=== PATIENT | female | born 1990 | race Caucasian/White ===

== ENCOUNTER 2024-07-10 19:21 | Emergency (ER) | payer OTHER, SELFPAY ==
[2024-07-10 19:23] VITALS: BP 121/73
--- NOTE | 2024-07-10 21:03 | ED.GENMED ---
History of Present Illness
General
Chief Complaint: Skin Problem
Time Seen by Provider: 07/10/24 20:35
History of Present Illness
History of Present Illness:
Patient is a 33-year-old woman presenting to the emergency department with finger swelling. Patient states that 5 days ago she went to an urgent care when she noticed that the left finger was slightly swollen around her nail. They did not drain
anything and started her on Keflex. Patient did finish the Keflex and noticed persistent swelling and pain. No fevers or chills. No numbness tingling. 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 No recent trauma. No herpetic lesions
noted by patient.
Phy Exam
Physical Exam
Physical Exam:
GENERAL: in no acute distress
HEENT: normocephalic, extraocular movements intact
RESPIRATORY: no respiratory distress
CARDIOVASCULAR: regular rate and rhythm
EXTREMITIES: Left fingertip with swelling fluctuance and erythema around the fingernail, no herpetic lesions
NEUROLOGIC: awake and alert, moves all extremities
SKIN: warm
Course
Vital Signs
Initial and Last Documented VS:
Initial Vital Signs
Temp Pulse Resp BP Pulse Ox
97.9 F 68 18 121/73 99
07/10/24 19:23 07/10/24 19:23 07/10/24 19:23 07/10/24 19:23 07/10/24 19:23
Last Documented Vital Signs
Temp Pulse Resp BP Pulse Ox
97.9 F 68 18 121/73 99
07/10/24 19:23 07/10/24 19:23 07/10/24 19:23 07/10/24 19:23 07/10/24 19:23
Procedures
Incision/Drainage/Joint Aspiration
Left Finger:
Anethesia: 1% Lidocaine
Preparation: cleaned with alcohol wipe
Type of procedure: incise and drain
Nature of site: abscess
Description of abscess: less than 3cm
Loculations broken up: Yes
How much fluid was obtained?: scant amount
Fluid description: purulent
Treatment: left open for drainage
MDM/Problems Addressed
Differential Diagnosis Includes:
Patient is a 33-year-old woman presenting to the emergency department with left fingertip infection. On exam the area is consistent with paronychia. Bedside I&D completed with small amount of purulent fluid. There was immediate relief especially
with the swelling. I did start patient on Augmentin. Will give first dose here. Patient provided with strict return precautions. Educated patient on warm water soaks.
*Critical Care Note
Total Time (30-74mins, 75-104mins- exclusive of procedures): Not Applicable
ED Attending Note
-
Portions of this chart may have been created with voice recognition software.� Occasional wrong word or��sound alike� substitutions may have occurred due to the inherent limitations of voice recognition software.
Discharge Plan
Departure
Patient Disposition: Home (Routine Discharge)
Date of Disposition: 07/10/24
Time of Disposition: 21:00
Patient with high blood pressure during this ER visit?: No
Discharge Problem:
Paronychia
Instructions: Paronychia ED
Prescriptions:
New
ibuprofen 600 mg tablet
600 mg PO QID PRN (Reason: Pain) Qty: 30 0RF
amoxicillin-pot clavulanate 875-125 mg tablet
1 tab PO Q12H 7 Days Qty: 14 0RF
Activity Restrictions/Additional Instructions:
You were seen in the Emergency Department today for An infection of your fingertip. Please take the antibiotics as prescribed. Please do the warm soaks as discussed. If you notice worsening numbness tingling or worsening pain please loosen up
the dressing and then proceed to the emergency department if symptoms persist.
We would like for you to follow up with your primary care physician for further evaluation. If you experience fever, worsening of your symptoms, or develop any other new or concerning symptoms, please return to the Emergency Department immediately.
Please see the attached sheet for additional information.
Interventions
Interventions:
*Risk Screen - Suicide Last Done: 07/10/24 19:28
*General Assessment Last Done: 07/10/24 19:28
*Neglect/Abuse Screening Last Done: 07/10/24 19:28
*ED COVID-19 Vaccine History Last Done: 07/10/24 19:28
ED-Skin Assessment Last Done: 07/10/24 20:59
Discharge Date and Time
Print Language: WOLOF
[2024-07-10] MEDS: MOTRIN 800 MG PO (21:11)
[2024-07-10] MEDS: AUGMENTIN 875 MG/125 MG 1 TABLET PO (21:11)
== END 2024-07-10 21:15 | disposition home or self-care (01) ==
LOC: EMR 19:21
PROVIDERS: EMERGENCY PHYSICIAN Student in an Organized Health Care Education/Training Program
DX: L02.512 Cutaneous abscess of left hand (principal); L03.012 Cellulitis of left finger
CPT/HCPCS: 99283; 10060

== ENCOUNTER 2024-09-07 14:06 | Emergency (ER) | payer OTHER, SELFPAY ==
--- NOTE | 2024-09-07 14:10 | ED.GENMED ---
ED Provider Triage
<MINNA James - Last Filed: 09/07/24 14:16>
-
Patient seen by provider in Triage?: Seen in Triage
Attestation: A medical screening examination has been initiated by a qualified medical provider. Based on the assessment performed at this time, it has been determined that an emergent medical condition may exist and the patient has been informed
that further medical evaluation and possible additional diagnostic testing may be needed.
HPI: 33-year-old female presents to the ER for evaluation of right flank radiating to right abdomen/right groin. Denies any frequency urgency or dysuria. Patient is nauseous but not vomited.
GENERAL: Alert , in no apparent distress
EYE: No visual abnormalities.
NECK: Trachea midline
ENT: No visible abnormalities.
LUNGS: No acute respiratory distress
NEUROLOGICAL: Alert and oriented
SKIN: Skin intact. No visible changes.
MUSCULOSKELETAL: Moving extremities normally
PSYCH: Normal and appropriate interaction.
This is a medical evaluation conducted in person to initiate diagnostic evaluation and provide initial therapeutics. Please see further documentation by the treating clinician.
History of Present Illness
<MINNA James - Last Filed: 09/07/24 14:16>
General
Chief Complaint: Flank Pain
Time Seen by Provider: 09/07/24 14:52
<Ger Jeter Jr., PA-C - Last Filed: 09/07/24 20:03>
General
Source: patient
Exam Limitations: none
Nursing documentation reviewed up to this point in time: agreed with
History of Present Illness
History of Present Illness:
33-year-old female presenting to the emergency department today with concerns of right-sided flank discomfort starting this morning described as intermittent sharp discomfort some mild urinary symptoms no vaginal symptoms no chest pain or shortness
of breath does have some nausea intermittent vomiting. No diarrhea.
Review of Systems
<Ger Jeter Jr., PA-C - Last Filed: 09/07/24 20:03>
Review of Systems
Allergies reviewed?: Yes
All Other Systems: ROS reviewed and negative except as documented in HPI and ROS
Phy Exam
<Ger Jeter Jr., PA-C - Last Filed: 09/07/24 20:03>
Physical Exam
Physical Exam:
GENERAL: Alert , in no apparent distress
EYE: pupils equal and reactive
NECK: Supple, no significant adenopathy.
ENT: o/p clr, mmm.
CARDIAC: Regular rate and rhythm .
LUNGS: Clear breath sounds bilaterally, no acute respiratory distress, no wheezes/rales/rhonchi
ABDOMEN: Soft, without focal tenderness, no r/g, no cvat
NEUROLOGICAL: Alert and oriented, no focal neuro deficits
SKIN: Warm and dry, skin intact.
MUSCULOSKELETAL: No edema, well perfused.
PSYCH: Normal and appropriate interaction.
Course
<MINNA James - Last Filed: 09/07/24 14:16>
Orders/Labs/Results
Orders:
Orders
09/07/24 14:12
Test Result ONCE
09/07/24 14:14
Ketorolac [Toradol] 30 mg IM NOW STA
Ondansetron Orally Disint [Zofran Odt (Orally Disintegrating)] 4 mg PO NOW STA
09/07/24 14:16
CT Abd/pel Without Iv Or Oral Urgent
Comment:
Reason For Exam: right flank pain
Ketorolac [Toradol] 60 mg .ROUTE .STK-MED ONE
Ondansetron Orally Disint [Zofran Odt (Orally Disintegrating)] 4 mg .ROUTE .STK-MED ONE
09/07/24 14:20
Ketorolac [Toradol] 30 mg IM NOW STA
09/07/24 14:33
Complete Blood Count/With Diff Urgent
Comprehensive Metabolic Panel Urgent
HCG, Serum Qualitative Screen Urgent
Lipase Urgent
09/07/24 14:40
Urinalysis Reflex To Culture Urgent
Date Specimen was Collected: 09/07/24
Time Specimen was Collected: 14:36
Urine Microscopic Reflex Cult Urgent
Urine Culture Urgent
EMMA Source: U
Specimen Description:
Date Specimen was Collected: 09/07/24
Time Specimen was Collected: 14:36
09/07/24 15:19
Morphine Sulfate 4 mg IV NOW STA
09/07/24 18:10
HYDROmorphone [Dilaudid] 0.5 mg IV NOW STA
09/07/24 18:19
Tamsulosin [Flomax] 0.4 mg PO NOW STA
Abnormal Lab Results
09/07/24 09/07/24
14:33 14:40
MPV 12.0 H fL
(7.4-10.4)
BUN 19 H mg/dl
(7-17)
Glucose 103 H mg/dl
(70-99)
Ur Occult Blood Reflex 4+ A
(Negative)
Urine RBC 80-90 A /HPF
(0-2)
Urine Bacteria (Reflex) Moderate A
(Negative)
Urine Albumin (Reflex) 1+ A
(Neg - Trace)
09/07/24 14:33
09/07/24 14:33
Vital Signs
Initial and Last Documented VS:
Initial Vital Signs
Temp Pulse Resp BP Pulse Ox
98.5 F 65 18 146/88 100
09/07/24 14:11 09/07/24 14:11 09/07/24 14:11 09/07/24 14:11 09/07/24 14:11
Last Documented Vital Signs
Temp Pulse Resp BP Pulse Ox
98.5 F 78 20 117/69 99
09/07/24 14:11 09/07/24 18:14 09/07/24 18:14 09/07/24 18:14 09/07/24 18:14
<Ger Jeter Jr., DESI-Annie - Last Filed: 09/07/24 20:03>
Orders/Labs/Results
Orders:
Orders
09/07/24 14:12
Test Result ONCE
09/07/24 14:14
Ketorolac [Toradol] 30 mg IM NOW STA
Ondansetron Orally Disint [Zofran Odt (Orally Disintegrating)] 4 mg PO NOW STA
09/07/24 14:16
CT Abd/pel Without Iv Or Oral Urgent
Comment:
Reason For Exam: right flank pain
Ketorolac [Toradol] 60 mg .ROUTE .STK-MED ONE
Ondansetron Orally Disint [Zofran Odt (Orally Disintegrating)] 4 mg .ROUTE .STK-MED ONE
09/07/24 14:20
Ketorolac [Toradol] 30 mg IM NOW STA
09/07/24 14:33
Complete Blood Count/With Diff Urgent
Comprehensive Metabolic Panel Urgent
HCG, Serum Qualitative Screen Urgent
Lipase Urgent
09/07/24 14:40
Urinalysis Reflex To Culture Urgent
Date Specimen was Collected: 09/07/24
Time Specimen was Collected: 14:36
Urine Microscopic Reflex Cult Urgent
Urine Culture Urgent
EMMA Source: U
Specimen Description:
Date Specimen was Collected: 09/07/24
Time Specimen was Collected: 14:36
09/07/24 15:19
Morphine Sulfate 4 mg IV NOW STA
09/07/24 18:10
HYDROmorphone [Dilaudid] 0.5 mg IV NOW STA
09/07/24 18:19
Tamsulosin [Flomax] 0.4 mg PO NOW STA
Abnormal Lab Results
09/07/24 09/07/24
14:33 14:40
MPV 12.0 H fL
(7.4-10.4)
BUN 19 H mg/dl
(7-17)
Glucose 103 H mg/dl
(70-99)
Ur Occult Blood Reflex 4+ A
(Negative)
Urine RBC 80-90 A /HPF
(0-2)
Urine Bacteria (Reflex) Moderate A
(Negative)
Urine Albumin (Reflex) 1+ A
(Neg - Trace)
09/07/24 14:33
09/07/24 14:33
Vital Signs
Initial and Last Documented VS:
Initial Vital Signs
Temp Pulse Resp BP Pulse Ox
98.5 F 65 18 146/88 100
09/07/24 14:11 09/07/24 14:11 09/07/24 14:11 09/07/24 14:11 09/07/24 14:11
Last Documented Vital Signs
Temp Pulse Resp BP Pulse Ox
98.5 F 78 20 117/69 99
09/07/24 14:11 09/07/24 18:14 09/07/24 18:14 09/07/24 18:14 09/07/24 18:14
<Ger Jeter Jr., PA-C - Last Filed: 09/07/24 20:03>
MDM/Problems Addressed
MDM/Problems Addressed:
33-year-old female presenting to the emergency department today with concerns of right-sided flank pain. Patient with intermittent sharp pain sounds consistent with potential kidney stone labs unremarkable vital signs normal afebrile urinalysis
without signs of infection. CT scan confirms 6.5 mm distal stone. Symptoms well-controlled here can follow-up with urology trial of passage recommended return precautions given.
<Ger Jeter Jr., PA-C - Last Filed: 09/07/24 20:03>
*Critical Care Note
Total Time (30-74mins, 75-104mins- exclusive of procedures): Not Applicable
ED Attending Note
<MINNA James - Last Filed: 09/07/24 14:16>
-
Portions of this chart may have been created with voice recognition software.� Occasional wrong word or��sound alike� substitutions may have occurred due to the inherent limitations of voice recognition software.
Discharge Plan
Departure
Patient Disposition: Home (Routine Discharge)
Date of Disposition: 09/07/24
Time of Disposition: 19:51
Patient with high blood pressure during this ER visit?: No
Condition: Good
Covid-19: Not Applicable
Discharge Problem:
Calculus, ureteral
Instructions: Kidney Stones (DC), How to Strain Your Urine
Prescriptions:
New
tamsulosin [Flomax] 0.4 mg capsule
0.4 mg PO HS Qty: 7 0RF
oxycodone-acetaminophen [Percocet] 5-325 mg tablet
1 tab PO Q6H PRN (Reason: Pain) Qty: 7 0RF
ondansetron 4 mg tablet,disintegrating
4 mg PO Q6H PRN (Reason: nausea and vomiting) Qty: 7 0RF
No Action
ibuprofen 600 mg tablet
600 mg PO QID PRN (Reason: Pain) Qty: 30 0RF
amoxicillin-pot clavulanate 875-125 mg tablet
1 tab PO Q12H 7 Days Qty: 14 0RF
Referrals:
Alexander Lopez MD [Active] - Follow up in 5-7 days
UNKNOWN - PT DOES,NOT KNOW [Family Provider] -
Activity Restrictions/Additional Instructions:
You came to the emergency department today with concerns of a stone. Please take prescribed medication help with symptoms and otherwise follow-up closely with urology if symptoms are ongoing. Return for any worsening, new or concerning symptoms.
Interventions
Interventions:
*Risk Screen - Suicide Last Done: 09/07/24 14:11
*General Assessment Last Done: 09/07/24 14:11
*Neglect/Abuse Screening Last Done: 09/07/24 14:11
*ED COVID-19 Vaccine History Last Done: 09/07/24 14:11
KJ-Bqnttu-Kyuqbmwzay Assessment Last Done: 09/07/24 15:35
ED-Female Genitourinary Assessment Last Done: 09/07/24 15:35
Discharge Date and Time
Print Language: [place]
[2024-09-07 14:11] VITALS: BP 146/88
[2024-09-07] MEDS: ZOFRAN ODT (ORALLY DISINTEGRATING) 4 MG PO (14:20)
[2024-09-07] MEDS: TORADOL 30 MG IM (14:21)
[2024-09-07 15:20] LABS: % Basophils 0.8 % (0-2); % Eosinophils 0.9 % (0-6); % Immature Granulocytes 0.4 % (0-0.5); % Lymphocytes 21.4 % (20.5-51.1); % Monocytes 8.5 % (1.7-9.3); Absolute Basophils 0.1 10^3/uL (0-0.2); Absolute Eosinophils 0.1 10^3/uL (0-0.7); Absolute Lymphocytes 1.6 10^3/uL (1.2-3.4); Absolute Monocytes 0.6 10^3/uL (0.1-0.6); Absolute Neutrophils 5.1 10^3/uL (1.4-6.5); Hemoglobin 13.3 g/dL (12.0-16.0); Mean Corp Hgb Conc. 33.3 g/dL (33.0-37.0); Mean Corpuscular Hgb 30.2 pg (27.0-31.0); Mean Corpuscular Volume 90.7 fL (81.0-99.0); Nucleated Red Blood Cells % 0 %; Platelet Count 209 10^3/uL (130-400); Red Blood Cell Count 4.41 10^6/uL (4.20-5.40); Red Cell Dist. Width 11.9 % (11.5-14.5); White Blood Cell Count 7.5 10^3/uL (4.8-10.8)
[2024-09-07 15:24] VITALS: BMI 32.6
[2024-09-07] MEDS: MORPHINE SULFATE 4 MG IV (15:31)
[2024-09-07 15:34] LABS: HCG, Serum Qualitative Screen Negative
[2024-09-07 15:36] LABS: Urine Albumin 1+ (Neg - Trace); Urine Bilirubin Negative (Negative); Urine Character Clear (Clear); Urine Color Yellow; Urine Glucose Negative (Negative); Urine Ketone Negative (Negative); Urine Leukocyte Negative (Negative); Urine Nitrite Negative (Negative); Urine Occult Blood 4+ (Negative); Urine Specific Gravity 1.025 (<1.030); Urine Urobilinogen Negative (Neg - 1+)
[2024-09-07 15:39] LABS: ALT (SGPT) 18 U/L (0-35); AST (SGOT) 25 U/L (14-36); Albumin 4.7 g/dl (3.5-5.0); Alkaline Phosphatase 90 U/L (38-126); Blood Urea Nitrogen 19 mg/dl (7-17); Calcium 9.4 mg/dl (8.4-10.2); Carbon Dioxide 25 mmol/L (22-30); Chloride 101 mmol/L (98-107); Estimated Creatinine Clearance 88 ml/min; Glucose 103 mg/dl (70-99); Potassium 4.2 mmol/L (3.5-5.1); Sodium 136 mmol/L (135-145); Total Bilirubin 1.2 mg/dl (0.2-1.3); Total Protein 7.4 g/dl (6.3-8.2); eGFR > 60.00
[2024-09-07 15:41] VITALS: BP 119/64
[2024-09-07 15:49] LABS: Urine Mucus Many; Urine Squamous Cell >30 /LPF (Few)
[2024-09-07 15:50] LABS: Urine Bacteria Moderate (Negative); Urine Calcium Oxalate Crystals Present; Urine Red Blood Cell 80-90 /HPF (0-2); Urine White Cell 0-2 /HPF (0-5)
[2024-09-07 16:04] LABS: Lipase 162 U/L (23-300)
[2024-09-07 18:14] VITALS: BP 117/69
[2024-09-07] MEDS: DILAUDID 0.5 MG IV (18:16)
[2024-09-07] MEDS: FLOMAX 0.4 MG PO (18:32)
[2024-09-07 19:54] VITALS: BP 118/75
== END 2024-09-07 20:06 | disposition home or self-care (01) ==
LOC: EMR 14:06
PROVIDERS: Nurse Practitioner; EMERGENCY PHYSICIAN Emergency Medicine
DX: N13.2 Hydronephrosis with renal and ureteral calculous obstruction (principal)
CPT/HCPCS: 96374; 96375; 96372; 99284; 74176; 80053; 81003; 81015; 83690; 84703; 85025; 87086

== ENCOUNTER 2024-09-11 23:58 | Inpatient (IN) | payer OTHER, SELFPAY ==
[2024-09-11 18:58] LABS: Urine Albumin Trace (Neg - Trace); Urine Bilirubin Negative (Negative); Urine Character Clear (Clear); Urine Color Yellow; Urine Glucose Negative (Negative); Urine Ketone Negative (Negative); Urine Leukocyte Negative (Negative); Urine Nitrite Negative (Negative); Urine Occult Blood 4+ (Negative); Urine Specific Gravity 1.015 (<1.030); Urine Urobilinogen Negative (Neg - 1+)
[2024-09-11 19:00] LABS: % Basophils 0.9 % (0-2); % Immature Granulocytes 0.4 % (0-0.5); % Lymphocytes 23.9 % (20.5-51.1); % Monocytes 8.1 % (1.7-9.3); % Neutrophils 65.7 % (42.2-75.2); Absolute Basophils 0.1 10^3/uL (0-0.2); Absolute Eosinophils 0.1 10^3/uL (0-0.7); Absolute Lymphocytes 2.2 10^3/uL (1.2-3.4); Absolute Monocytes 0.8 10^3/uL (0.1-0.6); Absolute Neutrophils 6.1 10^3/uL (1.4-6.5); Hematocrit 35.5 % (37.0-47.0); Hemoglobin 12.1 g/dL (12.0-16.0); Mean Corp Hgb Conc. 34.1 g/dL (33.0-37.0); Mean Corpuscular Hgb 30.6 pg (27.0-31.0); Mean Corpuscular Volume 89.6 fL (81.0-99.0); Mean Platelet Volume 11.3 fL (7.4-10.4); Nucleated Red Blood Cells % 0 %; Platelet Count 178 10^3/uL (130-400); Red Blood Cell Count 3.96 10^6/uL (4.20-5.40); Red Cell Dist. Width 11.8 % (11.5-14.5); White Blood Cell Count 9.3 10^3/uL (4.8-10.8)
[2024-09-11 19:06] LABS: Urine Calcium Oxalate Crystals Present; Urine Squamous Cell 16-20 /LPF (Few)
[2024-09-11 19:07] LABS: Urine Red Blood Cell 26-30 /HPF (0-2)
[2024-09-11 19:08] LABS: Urine Bacteria Moderate (Negative)
[2024-09-11 19:18] LABS: ALT (SGPT) 14 U/L (0-35); AST (SGOT) 20 U/L (14-36); Albumin 4.2 g/dl (3.5-5.0); Alkaline Phosphatase 84 U/L (38-126); Blood Urea Nitrogen 11 mg/dl (7-17); Calcium 9.1 mg/dl (8.4-10.2); Carbon Dioxide 27 mmol/L (22-30); Chloride 101 mmol/L (98-107); Glucose 86 mg/dl (70-99); Potassium 3.5 mmol/L (3.5-5.1); Sodium 137 mmol/L (135-145); Total Protein 6.5 g/dl (6.3-8.2); eGFR > 60.00
--- NOTE | 2024-09-11 21:15 | ED.GENMED ---
History of Present Illness
General
Chief Complaint: Urinary Symptoms
Time Seen by Provider: 09/11/24 21:07
History of Present Illness
History of Present Illness:
Patient is a 33-year-old woman who was recently here 4 days ago and diagnosed with a 6.5 mm kidney stone with moderate hydronephrosis ultimately discharged with Percocet and Flomax presenting to the emergency department for worsening pain. She
states that yesterday the pain worsened. It is in her right flank that radiates to her right groin. She been having dysuria and also noticed pink-tinged in her urine. No fevers or chills. No nausea or vomiting. She called her primary care
doctor who told her to come to the emergency department for further evaluation.
Phy Exam
Physical Exam
Physical Exam:
GENERAL: Appears uncomfortable
HEENT: normocephalic, extraocular movements intact, moist oral mucosa
NECK: normal inspection
RESPIRATORY: no respiratory distress, clear to auscultation bilaterally
CARDIOVASCULAR: regular rate and rhythm
ABDOMEN/: soft, non-distended, non-tender to palpation, no rebound or guarding
EXTREMITIES: non-tender, no edema/swelling
NEUROLOGIC: awake and alert, moves all extremities
SKIN: warm
Course
Orders/Labs/Results
Orders:
Orders
09/11/24 18:52
Complete Blood Count/With Diff Urgent
Comprehensive Metabolic Panel Urgent
HCG, Serum Qualitative Screen Urgent
Comment: ADDON
Urinalysis Reflex To Culture Urgent
Date Specimen was Collected: 09/11/24
Time Specimen was Collected: 18:45
Urine Microscopic Reflex Cult Urgent
Urine Culture Urgent
EMMA Source: U
Specimen Description:
Date Specimen was Collected: 09/11/24
Time Specimen was Collected: 18:45
09/11/24 21:08
CT Abd/pel Without Iv Or Oral Urgent
Comment:
Reason For Exam: flank pain, kidney stone
09/11/24 21:09
Add On- LAB Urgent
Tests Added?: hcg qualitative
09/11/24 21:13
Add On- LAB Urgent
Tests Added?: Serum HCG qualitative
09/11/24 21:14
Ketorolac [Toradol] 15 mg IM NOW STA
09/11/24 21:59
HYDROmorphone [Dilaudid] 0.5 mg IV NOW STA
09/11/24 22:35
Tamsulosin [Flomax] 0.4 mg PO NOW STA
Abnormal Lab Results
09/11/24
18:52
RBC 3.96 L 10^6/uL
(4.20-5.40)
Hct 35.5 L %
(37.0-47.0)
MPV 11.3 H fL
(7.4-10.4)
Absolute Monos (auto) 0.8 H 10^3/uL
(0.1-0.6)
Ur Occult Blood Reflex 4+ A
(Negative)
Urine RBC 26-30 A /HPF
(0-2)
Urine Bacteria (Reflex) Moderate A
(Negative)
09/11/24 18:52
09/11/24 18:52
Vital Signs
Initial and Last Documented VS:
Initial Vital Signs
Temp Pulse Resp Pulse Ox
97.9 F 72 20 98
09/11/24 18:41 09/11/24 18:41 09/11/24 18:41 09/11/24 18:41
Last Documented Vital Signs
Temp Pulse Resp BP Pulse Ox
97.9 F 64 18 113/50 99
09/11/24 18:41 09/11/24 22:19 09/11/24 22:19 09/11/24 22:19 09/11/24 22:19
MDM/Problems Addressed
Differential Diagnosis Includes:
33-year-old female with recent diagnosis of a 6.5 mm kidney stone with mild Haldrone nephrosis presenting to the emergency department ongoing pain hematuria and dysuria. Vitals unremarkable on lung exam she is uncomfortable appearing. Concern for
new kidney stone versus infected obstructed kidney stone. Blood work obtained prior to my evaluation is unremarkable. Her urine does have bacteria though signifcant squam cells and leukocyte nitrate negative. Per patient's urine sample from a few
days ago that was similar and the culture did not show any growth. Will hold off on antibiotics. will check CT scan. Will pain control.
*Critical Care Note
Total Time (30-74mins, 75-104mins- exclusive of procedures): Not Applicable
Update Note
Update Note:
On reevaluation patient's pain did initially resolved around 40 minutes later it did come back. Will give Dilaudid.
CT scan per my interpretation with stone in the distal right UVJ. Per the official read it is slightly more distal and the hydroureteronephrosis has slightly decreased. On reevaluation patient with ongoing pain thought not as severe prior to the
toradol. Will give 0.25 dilaudid after shared decision making. Given its size and the ongoing pain will admit. Discussed with hospitalist who accepted patient to their service.
ED Attending Note
-
Portions of this chart may have been created with voice recognition software.� Occasional wrong word or��sound alike� substitutions may have occurred due to the inherent limitations of voice recognition software.
Discharge Plan
Departure
Patient Disposition: Admit
Date of Disposition: 09/11/24
Time of Disposition: 22:52
Presentation/result/management discussed w/ accepting MD/DO: Hospitalist
Discharge Problem:
Calculus of ureterovesical junction (UVJ)
Prescriptions:
No Action
tamsulosin [Flomax] 0.4 mg capsule
0.4 mg PO HS Qty: 7 0RF
ibuprofen 200 mg Tablet
600 mg PO Q6HPRN PRN (Reason: mild pain)
escitalopram oxalate 20 mg Tablet
20 mg PO DAILY
oxycodone-acetaminophen [Percocet] 5-325 mg tablet
1 tab PO Q6HPRN PRN (Reason: severe pain)
ondansetron 4 mg tablet,disintegrating
4 mg PO Q6HPRN PRN (Reason: nausea and vomiting)
Referrals:
UNKNOWN - PT DOES,NOT KNOW [Family Provider] -
Interventions
Interventions:
*Risk Screen - Suicide Last Done: 09/11/24 22:23
*General Assessment Last Done: 09/11/24 18:41
*Neglect/Abuse Screening Last Done: 09/11/24 18:41
ED-Female Genitourinary Assessment Last Done: 09/11/24 22:19
Discharge Date and Time
Print Language: [place] IRISH
[2024-09-11] MEDS: TORADOL 15 MG IM (21:17)
[2024-09-11 21:53] LABS: HCG, Serum Qualitative Screen Negative
[2024-09-11] MEDS: DILAUDID 0.5 MG IV (22:17)
[2024-09-11 22:19] VITALS: BP 113/50; BMI 32.6
--- NOTE | 2024-09-11 22:59 | HPS.HSE ---
Addendum entered and electronically signed by Nilson Tang DO 09/12/24 02:55:
Patient seen and examined independently. Agree with findings an plan as set byron by MINNA Bay.
Patient is a 33y F with PMH significant for depression who presents to ED complaining of R flank pain radiating to the R groin. Patient states that pain has been present for about one week. She was originally seen in the ED [address]
scan at that time showed 6.5mm R ureteral stone with moderate hydronephrosis. She was discharged on tamsulosin and pain control. Patient states that her pain has only increased since that time. No fevers / chills, N/V, etc.
CT repeated today shows stone now at distal R UPJ - slightly more distal compared to prior.
Ass:
Right Ureterolithiasis
Moderate Right Hydronephrosis secondary to the above
Depression
Plan:
Admit for further evaluation and treatment.
Pain control, IVFs, etc.
Continue tamsulosin and straining urine.
Urology evaluation for further recommendations / possible intervention.
This is her first instance of kidney stones - send stone for analysis if recovered.
Continue usual outpatient medications.
Original Note:
Family Physician
-
Family Physician: NOT KNOW UNKNOWN - PT DOES
Chief Complaint
-
right flank pain
History of Present Illness
33-year-old woman with PMH for depression presented to us with worsening right flank radiating to right groin for past few days. she was recently here 4 days ago and diagnosed with a 6.5 mm kidney stone with moderate hydronephrosis ultimately
discharged with Percocet and Flomax. patient stated no relief with Flomax and Percocet. she was straining her urine. She been having dysuria and also noticed pink-tinged when she was wiping. No fevers or chills. No nausea or vomiting. denied BANKS,
dizzy or syncope.denied chest pain,sob.
CT with 6.5 mm calculus at the distal right ureteropelvic junction slightly more distally positioned in comparison to recent prior study. Minimal right hydroureteronephrosis, slightly decreased. patient received Dilaudid, Toradol and Flomax in ER.
admitting for further management.
Medical History
Past Medical History
Past Medical History: Reports Other
Additional Past Medical History:
hemorrhoids
palpitation
anxiety
depression
Past Surgical History: Reports Other
Additional Past Surgical History:
c section
bunion labioplasty
wisdom teeth removal
sinus surgery
Social History
Tobacco: Vaping
Alcohol: Occasional
Drug: None
Family History
Family History: Not pertinent
Allergies / Home Medications
Allergies reflects when Allergies were last updated in [facility].
Home Medications with original date entered in [facility]
Allergy/Medication List:
Allergies
Allergy/AdvReac Type Severity Reaction Status Date / Time
No Known Allergies Allergy Verified 09/11/24 18:44
Home Medications
tamsulosin 0.4 mg capsule (Flomax) 0.4 mg PO HS #7 caps 09/07/24
escitalopram oxalate 20 mg tablet 20 mg PO DAILY 09/11/24
ibuprofen 200 mg tablet 600 mg PO Q6HPRN PRN mild pain 09/11/24
ondansetron 4 mg disintegrating tablet 4 mg PO Q6HPRN PRN nausea and vomiting 09/11/24
oxycodone-acetaminophen 5 mg-325 mg tablet (Percocet) 1 tab PO Q6HPRN PRN severe pain 09/11/24
Review of Systems
-
Constitutional: Reports No Symptoms
EENT: Reports No Symptoms
Respiratory: Reports No Symptoms
Cardiac: Reports No Symptoms
Abdomen/GI: Reports No Symptoms
: Reports Dysuria and Flank Pain
Musculoskeletal: Reports No Symptoms
Skin: Reports No Symptoms
Neurological: Reports No Symptoms
Endocrine: Reports No Symptoms
Hematologic/Lymphatic: Reports No Symptoms
Psych: Reports No Symptoms
Physical Exam
Vital Signs
Vital Signs
Temp Pulse Resp BP Pulse Ox
97.9 F 64 18 113/50 99
09/11/24 18:41 09/11/24 22:19 09/11/24 22:19 09/11/24 22:19 09/11/24 22:19
Physical Exam
General: Well Developed, Well Nourished and No Apparent Distress
HEENT: NormoCephalic, Moist mucous membranes and Atraumatic
Respiratory: Clear
Cardiac: S1/S2 and Regular Rhythm; No Murmur or Rub
GI: Soft, Non Tender, Non Distended and Normal Bowel Sounds; No Organomegaly
Rectal: Deferred by Provider
Musculoskeletal: No Clubbing, No Cyanosis and No Edema
Skin: No Rash
Neuro: AO x 3 and Nonfocal/grossly intact
Psych: Calm
Laboratory Results
-
09/11/24 18:52
09/11/24 18:52
Laboratory Results
Total Bilirubin 1.0 mg/dl (0.2-1.3) 09/11/24 18:52
AST 20 U/L (14-36) 09/11/24 18:52
ALT 14 U/L (0-35) 09/11/24 18:52
Alkaline Phosphatase 84 U/L (38-126) 09/11/24 18:52
Data Reviewed
-
CT Scan: Report Reviewed by me
Lab Data: Labs Reviewed by me
Impression/Plan
-
#right UVJ stone with mild hydro
-Ct abdomen pelvis with 6.5 mm calculus at the distal right ureteropelvic junction slightly more distally positioned in comparison to recent prior study. Minimal right hydroureteronephrosis, slightly decreased.
-iv Dilaudid prn for pain
-tramadol prn for pain
-normal saline continued
-NPO after MN
-urology consulted
#depression
-escitalopram continued
#DVT prophylaxis
-scd
#CODE status
-full code
[2024-09-11] MEDS: FLOMAX 0.4 MG PO (23:11)
[2024-09-12] VITALS (10 sets, daily range): BP systolic 105–142; BP diastolic 64–81
[2024-09-12] MEDS: NSS 1000 IV ×2 (01:07→12:46)
[2024-09-12] MEDS: DILAUDID 0.5 MG IV ×8 (01:29→23:29)
[2024-09-12] MEDS: TYLENOL 650 MG PO (03:56)
[2024-09-12] MEDS: ULTRAM 100 MG PO ×2 (03:57→21:09)
--- NOTE | 2024-09-12 05:46 | PTCARENOTE ---
01:00 pt rev'd from ER for c/o R flank pain, IVF hung, urine to be strained dx right UVJ nephro. Pt oriented to unit and given pain meds.
[2024-09-12] MEDS: LEXAPRO 20 MG PO (07:23)
[2024-09-12] MEDS: ROCEPHIN 1000 MG IV (07:23)
[2024-09-12] MEDS: STERILE WATER FOR INJECTION 10 ML IV (07:23)
--- NOTE | 2024-09-12 07:55 | CONS.URO ---
Consultation
-
Date/Time Consultation Requested: 09/12/24
Date/Time Consultation Performed: 09/12/24
Requesting Provider: Dianna
Performing Provider: Maggie
Reason for Consultation: severe right renal colic, right UVJ stone
Medical History
History of Present Illness
33F presents to ED for 2nd visit (initial on 09/04/24) for worsening right renal colic w/ radiation to right groin.
CT imaging during 09/04 visit => 6.5 mm right UVJ stone w/ moderate right hydroureteronephrosis.
CT imaging from 09/11 => 6.5 mm right UVJ stone w/ minimal right renal collecting system dilatation.
+nausea, denies vomiting.
Denies F/C.
Taking tamsulosin and oxycodone/acetaminophen in addition to straining urine after 1st ER visit.
Admitted for intractable pain and nausea.
Past Medical History
Past Medical History: Arrhythmia, Psychiatric (anxiety, depression) and Other (palpitations, hemorrhoids)
Past Surgical History: and Other (bunion labioplasty, wisdom teeth removal, sinus surgery)
Social History
Tobacco: Vaping
Alcohol: Occasional
Drug: None
Personal: Single
Living: With Family
Family History
Family History: Reviewed & Not Pertinent
Allergies/Home Medications
Allergies
Allergy/AdvReac Type Severity Reaction Status Date / Time
No Known Allergies Allergy Verified 09/11/24 18:44
Home Medications
�Medication �Instructions �Recorded �Confirmed �Type
tamsulosin 0.4 mg capsule (Flomax) 0.4 mg PO HS #7 caps 09/07/24 09/11/24 Rx
escitalopram oxalate 20 mg tablet 20 mg PO DAILY 09/11/24 09/11/24 History
ibuprofen 200 mg tablet 600 mg PO Q6HPRN PRN mild pain 09/11/24 09/11/24 History
ondansetron 4 mg disintegrating 4 mg PO Q6HPRN PRN nausea and 09/11/24 09/11/24 History
tablet vomiting
oxycodone-acetaminophen 5 mg-325 1 tab PO Q6HPRN PRN severe pain 09/11/24 09/11/24 History
mg tablet (Percocet)
sulfamethoxazole 800 1 tab PO BID #14 tabs 09/12/24 Rx
mg-trimethoprim 160 mg tablet
(Bactrim DS)
Review of Systems
-
History Source: Patient
A 12 point Review of Systems was completed except as noted: Yes
Physical Exam
Vital Signs
Vital Signs
Temp Pulse Resp BP Pulse Ox
97.9 F 64 18 113/50 99
09/11/24 18:41 09/11/24 22:19 09/11/24 22:19 09/11/24 22:19 09/11/24 22:19
Lab / Testing Results
Laboratory Results
09/11/24 18:52
09/11/24 18:52
Physical Exam
General: Well Developed, Well Nourished and Pain
HEENT: Normocephalic and Anicteric
Respiratory: Non Labored Respirations
Cardiac: Regular Rhythm
Breast: Deferred by me
GI: Soft, Non Tender and Non Distended
Rectal: Deferred by Provider
Genito-urinary: No Costovertebral Tend
Musculoskeletal: No Edema
Skin: Warm and Dry
Neuro: AO x 3, No Motor Deficits and Nonfocal/Grossly Intact
Psych: Calm and Intact Judgement
Assessment / Plan
-
Intractable right renal colic
Right UVJ stone w/o high-grade obstructive uropathy
WBC WNL
Cr WNL
UCx 1 NG
UCx 09/[address] reviewed => c/w persistence of 6.5 mm right UVJ stone
Detailed discussion including SDM had w/ patient regarding risks, benefits, alternatives, and potential complications of ureteroscopy, laser lithotripsy, stone extraction, stent placement.
Potential risks and complications reviewed - including but not limited to urosepsis, bleeding, ureteral/bladder injury, ureteral stricture formation, need for additional procedures/surgeries.
- Maintain NPO
- IV Ceftriaxone ordered
- To OR today for cysto + right ULS
- Surgical consent signed on chart
D/w patient.
D/w Dr. Bustamante.
Data Reviewed
-
Total Time Spent with Patient (in minutes): 30
CT Scan: Image personally visualized and interpreted, Report Reviewed by Me, Discussed with Physician and Discussed with Patient
Lab Data: Labs Reviewed, Discussed with Physician and Discussed with Patient
Old Records: Reviewed
--- NOTE | 2024-09-12 08:00 | W.PN.HOSP.TC ---
Today's Communication/Plan
-
see PN
Assessment / Plan
Assessment / Plan
33yo F with PMHX of anxiety, Hx of UTI came with worsening R flank pain with nausea, seen few days before this admision for R nephrolithiasis with small hydrto and was planned for outpatient trial of passage with oral hydration. CT this time showed
improved hydronephhrosis but persistent R UPJ stone, Urology plannign on lythothrypsy and JJ stent. Patienrt also c/o dysuria, cloudy urine and burning with urination for a few days, however no fevers and no WBC elevation, no left shift on CBC. Cr
WNL.
A/P
#R UPJ nephrolithiasis with mild resolving hydronephrosis
Urology for procedure
hydration
pain mgmt
#dysuria, concern for complicated UTI
Ucx pedning, patient would like to be d/c on empiric Abx since no systemic symptoms and will follow results of the culture with her PCP - cara vora understanding and agreement with plan
Ceftriaxone 1 dose in-hospital and Bactrim for 7 days (will avoid cipro since pt is on Lexapro)
#bilateral L5 spondylolysis with grade 1 spondylolisthesis of L5 on S1 with DJD
PT/OT
tylenol
#Anxiety d/o
cont lexapro
DVT ppx on SCDs
Full code
I have spent at least 59min reviewing chart, test results, communication with consultants and direct patient care
Anticipated Discharge: Within 24 hours
Subjective/Interval History
-
Date of Service: September 12, 2024
Objective Data
-
Vital Signs:
Vital Signs
Temp Pulse Resp BP Pulse Ox
97.9 F 64 18 113/50 99
09/11/24 18:41 09/11/24 22:19 09/11/24 22:19 09/11/24 22:19 09/11/24 22:19
I&O
09/11/24 09/12/24 09/13/24
06:59 06:59 06:59
Intake Total 480 / 480
Output Total 500 / 500
Balance -20 / -20
Review of Systems
-
History Source: Patient
Genitourinary: Reports Dysuria and Flank Pain (R)
Physical Exam
-
General: No Apparent Distress
HEENT: Normocephalic
Respiratory: Clear to Auscultation
Cardiac: Regular Rhythm
GI: Soft, Nontender and Nondistended
Genito-urinary: Costovertebral Angle Tend (R)
Musculoskeletal: No Clubbing, No Cyanosis and No Edema
Neuro: Awake, Alert, Oriented and AO x 3
Psych: Calm
--- NOTE | 2024-09-12 08:22 | W.SUR.PREOP ---
Pre-Operative Surgical Note
-
I have examined this patient prior to the performance of the scheduled procedure.
The patient's condition is unchanged from the time of the current History and
Physical and the patient is able to undergo the scheduled procedure.
--- NOTE | 2024-09-12 10:57 | CM ---
Dioni seen at bedside.
IA completed.
Came to hospital with R flank pain, nausea
Patient for OR today-lithotripsy
PMH: uti, anxiety
Lives in a multistory home with dad and 2 her two children (10,13), 2 steps to enter, flight to second floor
PLOF: Independent, drives, works
Denies DME
Denies HH/Rehab
Denies insecurities
PCP: Maura Shea
[facility]
PLAN: Home, no needs anticipated
--- NOTE | 2024-09-12 15:18 | W.SUR.POST ---
Surgical Immediate Post Op
Note
Pre Op Diagnosis: rt uvj stone
Post Op Diagnosis:
same
Procedure Performed: rt ureteroscopy ad laser stone basket extraction jj stemt
Primary Surgeon:
flashner
Secondary Surgeons:
Anesthesia:general dr hinojosa
Estimated Blood Loss:2cc
Fluids:
nss
Drains/Shunts:6 fr 24 cm jj stent
Specimens/Cultures:
Doppler/Duplex/Angio (Y/N):
Complications:0
Operative Findings: 6 mm stone lodged in rt uvj lasered removed stented
[2024-09-12] MEDS: Pyridium 200 MG PO (15:39)
--- NOTE | 2024-09-12 16:27 | PTCARENOTE ---
pt received post-op, AAOx4, c/o 04/08 pain in abdomen RLQ and rt flank, on O2 at 2LNC. Pt asking to void. personal belongings returned to pt. vitals taken
[2024-09-12] MEDS: FLOMAX 0.4 MG PO (21:07)
[2024-09-13 03:03] VITALS: BP 116/76
[2024-09-13] MEDS: NSS 1000 IV (03:19)
[2024-09-13] MEDS: DILAUDID 0.5 MG IV (06:31)
[2024-09-13 07:00] VITALS: BP 130/72
[2024-09-13] MEDS: LEXAPRO 20 MG PO (09:08)
[2024-09-13] MEDS: STERILE WATER FOR INJECTION 10 ML IV (09:09)
[2024-09-13] MEDS: ROCEPHIN 1000 MG IV (09:09)
--- NOTE | 2024-09-13 10:57 | W.PN.HOSP.TC ---
Today's Communication/Plan
-
Discharge to home with outpatient urology follow-up
Assessment / Plan
Assessment / Plan
Ms. Abarca is a 33-year-old female with a medical history of depression who presented with right flank pain radiating to her groin that have been present for approximately 1 week prior to arrival. She has been seen in the ED 4 days prior to this
admission at which time she was diagnosed with a 6.5 mm right ureteral stone with moderate hydronephrosis. She was discharged to home at that time on tamsulosin and pain control, however she returned with worsening pain. Repeat imaging at the time
of this admission showed that the stone had moved to the distal right UPJ, more distal than previous. She was started on IV antibiotics and pain control. She was brought to the OR with urology on 09/12 for lithotripsy and ureteral stent placement.
She tolerated the procedure well. She will be discharged to home with instructions to follow-up in 1 to 2 weeks with urology in the outpatient clinic. Culture showed no growth to date. She has remained afebrile and hemodynamically stable. She
will also need to follow-up closely with her PCP after hospital discharge.
A/P
#R UPJ nephrolithiasis:
- Mild resolving hydronephrosis
-Status post OR with urology 09/12 for lithotripsy and right ureteral stent placement, tolerated procedure well
-Continue pain management and antibiotics
-Outpatient follow-up with urology in 1 to 2 weeks, plan for discharge today
#dysuria, concern for complicated UTI:
-Cultures negative to date
-Will continue empiric antibiotics
#bilateral L5 spondylolysis with grade 1 spondylolisthesis of L5 on S1 with DJD
-PT/OT
-tylenol
#Anxiety d/o
-cont lexapro
DVT ppx on SCDs
Full code
I have spent at least 59min reviewing chart, test results, communication with consultants and direct patient care
Anticipated Discharge: Today
Subjective/Interval History
-
Date of Service: September 13, 2024
Ms. Steiner was seen and examined at bedside this morning. She still has significant right flank pain following lithotripsy and ureteral stent placement yesterday. She remains hemodynamically stable.
Objective Data
-
Vital Signs:
Vital Signs
Temp Pulse Resp BP Pulse Ox
98.2 F 65 18 130/72 95
09/13/24 07:00 09/13/24 07:00 09/13/24 07:00 09/13/24 07:00 09/13/24 07:00
I&O
09/12/24 09/13/24 09/14/24
06:59 06:59 06:59
Intake Total 480 / 480 960 / 960
Output Total 500 / 500 3450 / 3450
Balance -20 / -20 -2490 / -2490
Review of Systems
-
History Source: Patient
EENT: Reports No Symptoms Reported
Respiratory: Reports No Symptoms
Cardiac: Reports No Symptoms
Abdomen/GI: Reports No Symptoms
Genitourinary: Reports Flank Pain (Right)
Musculoskeletal: Reports No Symptoms
Skin: Reports No Symptoms
Neuro: Reports No Symptoms
Psych: Reports Anxious
Physical Exam
-
General: No Apparent Distress and Pain
HEENT: Normocephalic and Atraumatic
Respiratory: Non Labored Respirations and Other (Equal expansion bilaterally)
Cardiac: Regular Rhythm and S1/S2
GI: Soft and Nondistended
Genito-urinary: Costovertebral Angle Tend (Right)
Skin: Warm and Dry
Neuro: Awake and Alert
Psych: Calm
Data Reviewed
-
CT Scan: Report Reviewed by me
Labs: Labs Reviewed by me
[2024-09-13 11:05] VITALS: BP 115/71
--- NOTE | 2024-09-13 11:08 | W.DCSUMMARY ---
Discharge Summary
Discharge Data
Date of Admission: 09/11/24
Date of Discharge: 09/13/24
-
Pending Results: No
Hospital Course
Ms. Abarca is a 33-year-old female with a medical history of depression who presented with right flank pain radiating to her groin that have been present for approximately 1 week prior to arrival. She has been seen in the ED 4 days prior to this
admission at which time she was diagnosed with a 6.5 mm right ureteral stone with moderate hydronephrosis. She was discharged to home at that time on tamsulosin and pain control, however she returned with worsening pain. Repeat imaging at the time
of this admission showed that the stone had moved to the distal right UPJ, more distal than previous. She was started on IV antibiotics and pain control. She was brought to the OR with urology on 09/12 for lithotripsy and ureteral stent placement.
She tolerated the procedure well. She will be discharged to home with instructions to follow-up in 1 to 2 weeks with urology in the outpatient clinic. Culture showed no growth to date. She has remained afebrile and hemodynamically stable. She
will also need to follow-up closely with her PCP after hospital discharge.
Discharge Plan
-
Patient Disposition: Home (Routine Discharge)
Discharge Diagnosis/Procedures: nephrolithiasis
Diet: Regular
Activity: As tolerated
Driving Restrictions: As prior to admission
Activity Restrictions/Additional Instructions:
Ms. Abarca is a 33-year-old female with a medical history of depression who presented with right flank pain radiating to her groin that have been present for approximately 1 week prior to arrival. She has been seen in the ED 4 days prior to this
admission at which time she was diagnosed with a 6.5 mm right ureteral stone with moderate hydronephrosis. She was discharged to home at that time on tamsulosin and pain control, however she returned with worsening pain. Repeat imaging at the time
of this admission showed that the stone had moved to the distal right UPJ, more distal than previous. She was started on IV antibiotics and pain control. She was brought to the OR with urology on 09/12 for lithotripsy and ureteral stent placement.
She tolerated the procedure well. She will be discharged to home with instructions to follow-up in 1 to 2 weeks with urology in the outpatient clinic. Culture showed no growth to date. She has remained afebrile and hemodynamically stable. She
will also need to follow-up closely with her PCP after hospital discharge.
Referrals:
Jerry Serrano MD [Active] - in one to two weeks
(Please call [facility] to schedule a stent removal procedure (1-2 weeks after discharge) with Dr. Serrano.
This is a 30 second outpatient office procedure (you are able to drive yourself) using local anesthetic jelly in the urethra and a small flexible telescope to remove the stent. )
UNKNOWN - PT DOES,NOT KNOW [Family Provider] -
Prescriptions:
New
phenazopyridine [Pyridium] 200 mg tablet
200 mg PO PC PRN (Reason: Pain on urination) Qty: 6 0RF
ciprofloxacin HCl 500 mg tablet
500 mg PO BID Qty: 10 0RF
Continued
escitalopram oxalate 20 mg Tablet
20 mg PO DAILY
oxycodone-acetaminophen [Percocet] 5-325 mg tablet
1 tab PO Q6HPRN PRN (Reason: severe pain)
ondansetron 4 mg tablet,disintegrating
4 mg PO Q6HPRN PRN (Reason: nausea and vomiting)
Discontinued
tamsulosin [Flomax] 0.4 mg capsule
0.4 mg PO HS Qty: 7 0RF
ibuprofen 200 mg Tablet
600 mg PO Q6HPRN PRN (Reason: mild pain)
Discharge Orders:
Discharge Patient (As Directed); Ordered 09/13/24
Ordered By: Hadley Bledsoe
Discharge Date and Time
Print Language: URUGUAYAN
[2024-09-13] MEDS: ULTRAM 100 MG PO (11:21)
--- NOTE | 2024-09-13 12:43 | W.PN.URO.CBU ---
Today's Communication / Plan
-
ok for d/c
Assessment / Plan
-
home with stent
Diagnosis
-
Date of Service: September 13, 2024
-
Patient Diagnosis:
Post Op Day: rt uvj stone some pain from stent
Subjective
-
stent pain
Objective
-
Vital Signs
Temp Pulse Resp BP Pulse Ox
98.0 F 66 18 115/71 98
09/13/24 11:05 09/13/24 11:05 09/13/24 11:05 09/13/24 11:05 09/13/24 11:05
Intake and Output
09/12/24 09/13/24 09/14/24
06:59 06:59 06:59
Intake Total 480 / 480 960 / 960
Output Total 500 / 500 3450 / 3450
Balance -20 / -20 -2490 / -2490
Intake:
IV fluids (Total) 480 / 480 960 / 960
Output:
Urine, Voided 500 / 500 3450 / 3450
Other:
Number of approximated LARGE 1
amounts of urine
Laboratory Results
09/11/24 18:52
09/11/24 18:52
Review of Systems
-
: Frequency and Urgency
Physical Exam
-
General - well developed, well nourished, no acute distress
Chest - clear bilaterally
Abdomen - soft, non-tender, positive bowel sounds, no CVAT, no incisional pain or distention
Genitalia - normal
Rectal - normal
Skin - warm & dry with no rash
Neuro - AOx3, no motor deficits
Extremities - no clubbing, no cyanosis, no edema
Incision - clean, dry
Dressing - clean, dry, intact
Care Review
Data Reviewed
Discussed with: Nursing
--- NOTE | 2024-09-13 13:07 | CM ---
Patient seen at bedside.
Discharge to home
No needs
IMM n/a
PLAN: Discharge to home, no needs
dad to transport
== END 2024-09-13 13:00 | disposition home or self-care (01) | DRG 661 ==
LOC: 2 SOUTH 23:58
PROVIDERS: Emergency Medicine; Internal Medicine; Specialist; ADMITTING PHYSICIAN Hospitalist; ATTENDING PHYSICIAN Internal Medicine; CONSULT PHYSICIAN Surgery; EMERGENCY PHYSICIAN Student in an Organized Health Care Education/Training Program
PROC: 0T768DZ Dilation of Right Ureter with Intraluminal Device, Via Natural or Artificial Opening Endoscopic (ICD-10-PCS; 2024-09-12)
PROC: 0TC68ZZ Extirpation of Matter from Right Ureter, Via Natural or Artificial Opening Endoscopic (ICD-10-PCS; 2024-09-12)
DX: N13.6 Pyonephrosis (principal)
CPT/HCPCS: 74018; 74176; 76000; 80053; 81003; 81015; 82365; 84703; 85025; 87086; 96372; 96374; 99285; C2617